=== PATIENT | male | born 2000 | race Caucasian/White ===

== ENCOUNTER 2020-06-06 19:41 | Emergency (ER) | payer MEDICAID ==
[~2020-06-06] VITALS: Ht 175.3 cm; Wt 97.5 kg
[2020-06-06] MEDS ORDERED: MECLIZINE HCL 25 MG TABLET PO ONE (20:15)
[2020-06-06] MEDS ORDERED: MECLIZINE HCL 25 MG TABLET ONE (20:27)
[2020-06-06] MEDS ORDERED: LORAZEPAM 2 MG/1 ML VIAL IV ONE ×2 (20:30→22:45)
[2020-06-06] MEDS ORDERED: IV NS 1000 ML 1,000 ML IV ONE (20:30)
[2020-06-06] MEDS ORDERED: LORAZEPAM 2 MG/1 ML VIAL ONE ×2 (20:42→22:46)
[2020-06-06 20:50] LABS: BASOPHILS % (AUTO) 0.4 % (0.0-2.0); EOSINOPHILS % (AUTO) 0.3 % (0.0-7.0); HEMATOCRIT 42.6 % (36.7-47.1); HEMOGLOBIN 14.4 g/dL (12.5-16.3); LYMPHOCYTES % (AUTO) 12.9 % (20.5-51.5); MEAN CORPUSCULAR HGB CONC 34 g/dL (32.5-36.3); MEAN CORPUSCULAR VOLUME 85.7 fL (73.0-96.2); MONOCYTES # (AUTO) 0.4 K/uL (2.0-10.0); MONOCYTES % (AUTO) 4.8 % (0.0-11.0); NEUTROPHILS # (AUTO) 6.1 K/uL (1.8-8.9); NEUTROPHILS % (AUTO) 81.6 % (38.5-71.5); PLATELET COUNT (AUTO) 186 K/uL (152-348); RED BLOOD CELL COUNT(AUTO) 4.97 MIL/uL (4.06-5.63); WHITE BLOOD COUNT (AUTO) 7.5 K/uL (3.6-10.2)
[2020-06-06 20:57] LABS: CARBON DIOXIDE 27 mmol/L (21-32); CHLORIDE 102 mmol/L (98-107); GLUCOSE 130 mg/dL (74-106); UREA NITROGEN, BLOOD 15 mg/dL (7-18)
[2020-06-06 21:02] LABS: ETHANOL < 3 MG/DL (0-0)
[2020-06-06 21:03] LABS: ALANINE AMINOTRANSFERASE 33 U/L (16-63); ALKALINE PHOSPHATASE 96 U/L (50-136); ASPARTATE AMINOTRANSFERASE 12 U/L (15-37); BILIRUBIN,DIRECT 0.1 mg/dL (0.0-0.2); BILIRUBIN,TOTAL 0.5 mg/dL (0.2-1.0); TOTAL PROTEIN, SERUM 7.1 g/dL (6.4-8.2)
--- NOTE | 2020-06-06 21:37 | NUR ---
Patient in bed, no acute distress noted. VSS
[2020-06-06 21:41] LABS: THYROID STIMULATING HORMONE 0.507 mIU/mL (0.358-3.740)
[2020-06-06 23:38] LABS: *BILIRUBIN,URIN NEGATIVE (NEGATIVE); *BLOOD, URINE NEGATIVE (NEGATIVE); *CLARITY,URINE CLEAR (CLEAR); *COLOR,URINE YELLOW (YELLOW); *KETONES,URINE NEGATIVE (NEGATIVE); *UROBILINOGEN,URINE 0.2 E.U./dl (NORMAL); LEUKOCYTE ESTERASE ,URINE NEGATIVE (NEGATIVE); NITRITE, URINE NEGATIVE (NEGATIVE); UGLUCOSE NEGATIVE (NEGATIVE)
[2020-06-06 23:57] LABS: *AMPHETAMINE, URINE NEGATIVE (NEGATIVE); *CANNABINOID, URINE POSITIVE (NEGATIVE); *COCCAINE, URINE NEGATIVE (NEGATIVE); *OPIATE, URINE NEGATIVE (NEGATIVE); *PHENCYCLIDINE SCREEN,URINE NEGATIVE (NEGATIVE)
--- NOTE | 2020-06-07 00:21 | NUR ---
Direct observation ongoing. no acute distress noted
--- NOTE | 2020-06-07 01:12 | NUR ---
Patient discharged to home in stable condition. Written and verbal after care instructions given. Patient verbalizes understanding of instructions. Stressed follow up or return to ER for worsening s/s. Ambulated from ER with stable gait. All belongings with patient. PIV removed prior to d/c. Patient driven home by taxi.
[2020-06-07 01:13] VITALS: BP 125/78
== END 2020-06-07 01:13 | disposition home or self-care (01) ==
LOC: ER 19:44
DX: R00.2 Palpitations (principal); R42 Dizziness and giddiness; R00.0 Tachycardia, unspecified
CPT/HCPCS: 36415; 71045; 80048; 80076; 80307; 80320; 81003; 84443; 85025; 93005 ×2; 96374; 96376; 99285; J2060 ×2; A4663; G0480; J8597